=== PATIENT | female | born 1975 | race Caucasian/White ===

== ENCOUNTER 2019-01-25 05:58 | Day surgery (SDC) ==
[2019-01-18 13:50] LABS: BASO# 0.02 X1000 (0.0-0.2); BASO% 0.3 % (0.0-0.8); EOS# 0.26 X1000 (0.0-0.7); EOS% 3.6 % (0.0-10.0); HEMATOCRIT 44.1 % (37.0-47.0); HEMOGLOBIN 14.1 g/dL (12.0-16.0); IMM GRAN# 0.02 X1000 (0.0-0.04); IMM GRAN% 0.3 % (0.0-0.5); LYMPH% 37.1 % (20.5-51.1); MCH 27.9 PG (27-31); MCV 87.2 FL (81-99); MONO# 0.47 X1000 (0.11-0.59); MONO% 6.5 % (1.7-9.3); MPV 10.5 FL (7.4-10.4); NEUT% 52.2 % (42.2-75.2); PLT 254 X1000 (130-400); RBC 5.06 XMIL (4.2-5.4); RDW 15.5 % (11.5-14.5); WBC 7.27 X1000 (4.8-10.8)
--- NOTE | 2019-01-24 08:52 | HISTORY AND PHYSICAL ---
HISTORY: Patient is a 43-year-old female referred by Dr. Aries Mora because of worsening incontinence. Patient was evaluated in October and at that time was found to have mixed symptom incontinence. She is a 5, and she had some hypermobility of the urethrovesical neck as well as some apical support issues. However, the biggest issue is definitely the incontinence. She underwent urodynamic evaluation and findings at that time showed hypermobility and a questionable lesion in the left trigone area. She underwent FISH analysis and has been managed conservatively. However, she has continued to have issues with incontinence. She is also having problems with very heavy menstrual cycles. Her BMI is moderately elevated. We discussed this at length. She is wishing to proceed with surgical intervention. She is admitted at this time for supracervical hysterectomy with abdominal sacrocolpopexy and mid urethral sling with Obtryx because of the prolapse and the menorrhagia. The risks and benefits of this were explained at length. She understands and she is wishing to proceed with surgical intervention. PAST MEDICAL HISTORY: See it is negative for diabetes, hypertension or asthma. PAST SURGICAL HISTORY: Positive for bilateral tubal ligation. ALLERGIES: None. FAMILY HISTORY: Positive for colon cancer in her mother. SOCIAL HISTORY: Positive for tobacco for greater than 30 years. REVIEW OF SYSTEMS: Negative except as above. PHYSICAL EXAMINATION: GENERAL: BMI is 37. HEENT: Normocephalic, atraumatic PERRLA, extraocular movements are intact, no thyromegaly. CV: Regular rate and rhythm without murmur, gallop, or rub. PULMONARY: Clear to auscultation and percussion. ABDOMEN: Soft. : Shows POP-Q stage II prolapse with hypermobility of the urethrovesical neck. NEUROLOGIC: Afocal. EXTREMITIES: Without clubbing, cyanosis, or edema. ASSESSMENT AND PLAN: The patient admitted at this time for supracervical hysterectomy, bilateral salpingectomy, abdominal sacrocolpopexy and mid urethral sling with Obtryx. The risks and benefits were discussed at length. She understands and is wishing to proceed with surgical intervention. cc: John Garcia MD
[2019-01-25] MEDS ORDERED: KEFZOL 2 GM/D5W 2 GM/50 ML IVPB ONE (06:08)
[2019-01-25] MEDS ORDERED: LR 1,000 ML ONE ×3 (06:08→10:58)
[2019-01-25] MEDS ORDERED: D10W 1,000 ML ONE (06:33)
[2019-01-25] MEDS ORDERED: SENSORCAINE-MPF 0.5%/EPI 1:200,000 ONE (06:33)
[2019-01-25] MEDS ORDERED: XYLOCAINE-MPF 2% ONE (06:35)
[2019-01-25] MEDS ORDERED: ROBINUL ONE ×2 (06:35→07:48)
[2019-01-25] MEDS ORDERED: QUELICIN (DOSE) ONE (06:35)
[2019-01-25] MEDS ORDERED: DIPRIVAN 1% ONE (06:35)
--- NOTE | 2019-01-25 06:40 | H&P REVIEW ---
H&P Update H&P Review: H&P was reviewed and patient was examined, No change has occurred in the patient's condition
[2019-01-25] MEDS ORDERED: TORADOL ONE (07:05)
[2019-01-25] MEDS ORDERED: DECADRON ONE ×2 (07:05→07:06)
[2019-01-25] MEDS ORDERED: ZOFRAN ONE (07:05)
[2019-01-25] MEDS ORDERED: LASIX ONE (07:38)
[2019-01-25] MEDS ORDERED: NORCURON ONE (07:38)
[2019-01-25] MEDS ORDERED: NEOSTIGMINE ONE (07:48)
[2019-01-25] MEDS ORDERED: DILAUDID ONE (08:41)
[2019-01-25] MEDS ORDERED: NORCO-5 PO PRN (11:31)
[2019-01-25] MEDS ORDERED: LR 1,000 ML IV SCH (11:31)
[2019-01-25] MEDS ORDERED: ZOFRAN ODT PO PRN (11:31)
[2019-01-25 11:42] LABS: URINE SOURCE CATH
[2019-01-25 11:48] LABS: BILIRUBIN URINE NEGATIVE (NEGATIVE); BLOOD URINE NEGATIVE (NEGATIVE); COLOR YELLOW; GLUCOSE URINE NEGATIVE (NEGATIVE); KETONE URINE NEGATIVE (NEGATIVE); LEUKOCYTES URINE NEGATIVE (NEGATIVE); NITRITE URINE NEGATIVE (NEGATIVE); PH URINE 6.5; PROTEIN URINE NEGATIVE (NEGATIVE); TURBIDITY URINE CLEAR (CLEAR); UR EPITHELIAL CELLS <10 /HPF (<10); URINE BACTERIA NEGATIVE /HPF; URINE RBC <10 /HPF (<10); URINE WBC <10 /HPF (<10); UROBILINOGEN URINE NORMAL (NORMAL)
[2019-01-25] MEDS: PERIDEX MT SCH ×2 (11:49→22:20)
[2019-01-25] MEDS: COLACE PO SCH ×2 (11:49→22:19)
--- NOTE | 2019-01-25 11:50 | OPERATIVE NOTE ---
PROCEDURE DATE: 01/25/2019 PREOPERATIVE DIAGNOSES: 1. Pelvic organ prolapse. 2. Menorrhagia. POSTOPERATIVE DIAGNOSES: 1. Pelvic organ prolapse. 2. Menorrhagia. PROCEDURE PERFORMED: [place] supracervical hysterectomy, abdominal sacrocolpopexy, bilateral salpingectomy, midurethral sling with Obtryx. SURGEON: John Garcia MD. COMPUTER SYSTEMS ENGINEER: Tori Ford MD. ANESTHESIA: General. ESTIMATED BLOOD LOSS: 75 mL. HISTORY: The patient is a 43-year-old female with worsening menorrhagia, pelvic organ prolapse, and incontinence. She was referred to me because of the incontinence and on evaluation, had some prolapse issues as well so she was admitted for surgical intervention after refusal of pessary management. FINDINGS: Pop Q stage II prolapse with most of it being anterior and apical. Hypermobility of the urethrovesical neck noted. Both ovaries were found to be within normal limits. DESCRIPTION OF OPERATIVE PROCEDURE: The patient was taken to the operating room and placed in the supine position. After adequate general anesthesia was obtained, she was placed in the [facility], and her abdomen and vagina were prepped and draped in the usual fashion. A supraumbilical incision was made after infiltration of 0.25% Marcaine with epinephrine. A 12 mm port and sheath were introduced through this incision in the abdominal cavity. Pelvic contents were visualized. Therefore, insufflation with CO2 to an intra-abdominal pressure of 14 was performed. The left-sided ports were placed in the typical positions after infiltration with the same local anesthetic and, under direct visualization, the right ports were placed in a similar fashion as well. Patient was placed in a deep Trendelenburg position. Le catheter was placed. EEA sizers were placed within the vagina and the anus. At this time, the robot was docked in the usual fashion. Hot scissors in the right hand, bipolar gyrus was in the left hand, and a single- tooth tenaculum was in the third arm. The patient was placed in a deep Trendelenburg position. Robot was docked. We initially elevated the uterus out of the pelvis and then grasped it with a single-tooth tenaculum, elevated it even further and used this third arm to manipulate the uterus. Starting at the left mesosalpinx, we clamped, cauterized, and cut the left mesosalpinx and continued in a clamp, cauterize, and cut fashion through the mesosalpinx, the round ligament, the uteroovarian pedicle, and then down the cardinal ligament. We then peritonealized anteriorly, beginning to drop the bladder below the operative site, and then clamped and cauterized the uterine vessels on the left-hand side. We turned our attention towards the right side, again elevating the fallopian tube away from the ovary. We clamped, cauterized, and cut the mesosalpinx, the round ligament, and then down the cardinal ligament in a similar fashion. We continued our anterior vesicovaginal dissection below the operative site, and then clamped and cauterized the uterine vessels on the right-hand side. A single blade of the hot scissors was then utilized to truncate the corpus of the uterus from the cervical stump, leaving approximately a 2 cm cervical stump. The endocervical canal was visualized and cauterized. We then placed the corpus of the uterus in the appendiceal bed. We grasped the anterior lip of the cervix with a single-tooth tenaculum. We then began with the primarily sharp dissection of the vesicovaginal space and we dissected out approximately 8-10 cm anteriorly in this space. We turned our attention towards the posterior compartment and developing the rectovaginal space. We stayed again in the avascular space and developed the same exact amount of space of approximately 8-10 cm. We then went up the sacral promontory and deviated the colon laterally, exposing the sacral promontory. We elevated the peritoneum over this area. We stepwise removed sections of the presacral fat so as to expose the anterior longitudinal ligament. We identified some the sacral veins and cauterized these without any difficulty, leaving us with an avascular space to place sutures through. We then created the peritoneal tunnel, starting at the sacral promontory and going down to our posterior dissection. The mesh was trimmed in the usual fashion with approximately 10 cm anteriorly, 10 cm posteriorly, and then the third arm had approximately 6 cm at the apical portion. All the mesh was placed intra-abdominally. We started in the vesicovaginal plane using [place]Ryder sutures. All knots were thrown in the same arrangement with an initial surgeon's throw and four half-throws after this. We placed approximately ten sutures anteriorly and then approximately two to three across the cervical stump, and approximately eight sutures in the posterior compartment. Again, all sutures were thrown in the same fashion. We brought the third arm up to the sacral promontory, again deviating the colon laterally and paying attention on the ureter on the right side and the common iliac vein on the left- hand side. We then placed two sutures through the third arm of the mesh, through the anterior longitudinal ligament, secured these. We confirmed appropriate positioning by elevating the sutures. We kept our level of needle dissection in a plane that would not be going into the disk of that area. Excessive mesh was trimmed at this area. We then placed an extra suture through the vesicovaginal space to help secure the mesh anteriorly and bring it down to the operative site. Copious amounts of irrigation was performed. We dropped the uterus down into the pelvis and undocked the robot. Using the morcellator through our prior assistance port that had been placed, we morcellated the corpus of the uterus without any difficulty. We maintained visualization of the blade throughout during the morcellation. After completion of this, we used a Aron-Salvador closure system to close the fascia and deep layers of both the assistance port and the supraumbilical port. Abdomen was deflated of CO2. All equipment had already been removed, as well as ports. Nursing services closed all skin incisions with a 4-0 Vicryl ligature in a subcuticular fashion. Vaginally, we closely inspected the vagina. We had excellent support anterior and apically. We did not see any abnormalities in the posterior compartment either. We turned our attention towards placement of the sling. The urethra was grasped proximally and distally with Allis clamps. Approximately 8-10 mL of the same local anesthetic was injected for hydrodissection as well as pain management. A sagittal incision was made and Metzenbaum scissors were utilized to dissect up to the 10 o'clock and 2 o'clock positions of the ischiopubic ramus. Based on the bony landmarks of the ischiopubic ramus, as well as the insertion of the adductor longus, a stab incision was initially made on the left-hand side. The Halo device was introduced through this incision, through the obturator canal to the transfer table operator's finger which directed the needle out. The mesh was attached to it and it was retracted back through the skin. This was performed on the contralateral side in a similar fashion. The Le catheter had already been removed. The cystoscope was introduced. The bladder was filled with approximately 300 mL of D10. Both ureters were effluxing urine. The left ureter was noted to have a more cephalad second moiety as well. No other abnormalities were noted. There was no evidence of any lesions within the bladder. There was some possibility of an interstitial cystitis picture with the vasculature of the bladder but no other abnormalities. There was no evidence of any mesh or suture material. Cystoscope was removed. A Rebecca clamp was placed in the mid urethral position. The tape was brought up with the Rebecca clamp, blue tag was excised, and the sheaths were easily removed. There was no tension on the mesh whatsoever. Mid urethral incision was closed with a running 2-0 Vicryl ligature. Le catheter was placed. Sponge count, instrument count, and needle count were correct x3. Rectal examination was performed and found to be within normal limits. The patient was taken out low adjustable stirrups. She was awakened and taken to the recovery room with vital signs stable. cc: John Garcia MD MTDD
[2019-01-25] MEDS: TORADOL IV SCH ×2 (12:51→17:57)
[2019-01-25] MEDS ORDERED: TYLENOL PO PRN (19:35)
--- NOTE | 2019-01-25 19:51 | PROGRESS NOTE ---
DATE: 01/25/2019 SUBJECTIVE: Patient is alert and oriented. OBJECTIVE: Afebrile. Vital signs stable. Urine output is clear and adequate. Dressings are intact surgical glue and the patient is not having any problems. ASSESSMENT AND PLAN: Routine postoperative care. We will plan on voiding trial and discharge in a.m. cc: John Garcia MD
[2019-01-26] MEDS: TORADOL IV SCH ×2 (01:38→06:01)
[2019-01-26 04:28] VITALS: BP 96/59
--- NOTE | 2019-01-26 09:15 | DISCHARGE SUMMARY ---
ADMISSION DATE: 01/25/2019 DISCHARGE DATE: 01/26/2019 PRINCIPAL DIAGNOSES: 1. Pelvic organ prolapse. 2. Menorrhagia. PROCEDURES: [place]wayne supracervical hysterectomy, bilateral salpingectomy, abdominal sacrocolpopexy and mid urethral sling with Obtryx. HISTORY: The patient is a 43-year-old female who is having increasing problems with pelvic organ prolapse, incontinence, and menorrhagia who was admitted for definitive surgical intervention. HOSPITAL COURSE: Patient underwent the above-stated procedure. Blood loss at that time was approximately 50 mL. Her postoperative course has been uncomplicated. She is currently undergoing voiding trial. She is being discharged home with instructions for followup in 2 weeks. DISCHARGE MEDICATIONS: [place]. DIET AND ACTIVITY: She was instructed on regular diet and decreased activity. cc: John Garcia MD
[2019-01-26] MEDS: PERIDEX MT SCH (09:17)
[2019-01-26] MEDS: COLACE PO SCH (09:17)
== END 2019-01-26 08:47 | disposition home or self-care (01) ==
LOC: 4N 05:58 → OPS 05:58
PROVIDERS: ATTEND Obstetrics & Gynecology
CPT/HCPCS: 81001; 81025; 84703; 85025; 88307; 94760; 94799; A9270; C1771; C1781; J0330; J0690; J1100; J1170; J1885; J1940; J2405; J7120; S2900